=== PATIENT | male | born 1940 | race Caucasian/White ===

== ENCOUNTER 2018-03-29 08:09 | Day surgery (SDC) | payer MEDICARE, OTHER ==
[~2018-03-29] VITALS: Ht 185.4 cm; Wt 97.5 kg
[2018-03-29] MEDS ORDERED: SODIUM CHLORIDE 0.9% 500 ML IV PRN (08:31)
[2018-03-29 08:35] VITALS: BP 146/91
[2018-03-29] MEDS ORDERED: ALLO100T30 PO (08:55)
[2018-03-29] MEDS ORDERED: CARV6.252 PO (08:56)
[2018-03-29] MEDS ORDERED: CARB1TAB47 PO (08:56)
[2018-03-29 08:58] LABS: ANION GAP 7 mmol/L (5-15); CALCIUM 8.1 mg/dL (8.5-10.1); CHLORIDE 101 mmol/L (98-107); CREATININE 1.07 mg/dL (0.7-1.3)
[2018-03-29] MEDS ORDERED: COLC0.6T47 PO (08:58)
[2018-03-29] MEDS ORDERED: DIGO125T PO (08:59)
[2018-03-29] MEDS ORDERED: LANS30CA PO (08:59)
[2018-03-29] MEDS ORDERED: APIX5TAB PO (08:59)
[2018-03-29] MEDS ORDERED: ATOR10TA9 PO (09:00)
[2018-03-29] MEDS ORDERED: ROPI12TA2 PO (09:01)
[2018-03-29] MEDS ORDERED: LEVO200T PO (09:02)
[2018-03-29] MEDS ORDERED: SPIR25TA3 PO (09:02)
[2018-03-29] MEDS ORDERED: CHOL2000 PO (09:03)
[2018-03-29] MEDS ORDERED: PROPOFOL 10 MG/ML, 20ML ONE (09:43)
== END 2018-03-29 11:58 ==
LOC: CACL 08:09
PROVIDERS: ATTEND Internal Medicine Cardiovascular Disease
DX: I48.91 Unspecified atrial fibrillation (principal); E78.5 Hyperlipidemia, unspecified; Z79.82 Long term (current) use of aspirin; Z88.1 Allergy status to other antibiotic agents
CPT/HCPCS: 36415; 80048; 92960; 93005; J2704

== ENCOUNTER → 2018-12-05 | Outpatient (CLI) | payer MEDICARE, OTHER ==
[~2018-12-05] MED LIST: ALLO100T30 PO; APIX5TAB PO; ATOR10TA9 PO; CARB1TAB47 PO; CARV6.252 PO; CHOL2000 PO; COLC0.6T47 PO; DIGO125T PO; LANS30CA PO; LEVO200T PO; ROPI12TA2 PO; SPIR25TA5 PO
== END | disposition home or self-care (01) ==
LOC: CVU 09:36
PROVIDERS: ATTEND Internal Medicine Cardiovascular Disease
DX: I35.0 Nonrheumatic aortic (valve) stenosis (principal); I10 Essential (primary) hypertension; I48.91 Unspecified atrial fibrillation
CPT/HCPCS: 0399T; 93306

== ENCOUNTER → 2020-10-15 | Outpatient (CLI) | payer MEDICARE, OTHER ==
[~2020-10-15] MED LIST changes: -COLC0.6T47 PO; +COLC0.6T50 PO; -DIGO125T PO; +DIGO125T85 PO
== END | disposition home or self-care (01) ==
LOC: CVU 10:39
PROVIDERS: ATTEND Internal Medicine Cardiovascular Disease
DX: I08.3 Combined rheumatic disorders of mitral, aortic and tricuspid valves (principal); I11.9 Hypertensive heart disease without heart failure; I27.20 Pulmonary hypertension, unspecified
CPT/HCPCS: 93306

== ENCOUNTER 2021-06-04 02:25 | Emergency (ER) | payer MEDICARE, OTHER ==
[~2021-06-04] VITALS: Ht 188 cm; Wt 80.0 kg
[2021-06-04] MEDS ORDERED: SODIUM CHLORIDE 0.9% 1,000 ML IV ONE (02:30)
[2021-06-04] MEDS ORDERED: SODIUM CHLORIDE FLUSH 10ML SYR IVF ONE (02:30)
--- NOTE | 2021-06-04 02:49 | NUR ---
PT BIBA FROM HOME FOR CP, HX OF A FIB. PT PRESENTS DYSPHAGIC, NADN. ALL MONITORS ATTACHED, ERMD ADRIANA AT BEDSIDE.
--- NOTE | 2021-06-04 03:12 | NUR ---
report recieved from vito atkinson. pt on all monitors, ekg done. no other needs at this time
[2021-06-04 03:25] LABS: BASOPHILS % (AUTO) 1 % (0-1); EOSINOPHILS % (AUTO) 3 % (1-7); LYMPHOCYTES % (AUTO) 27 % (22-44); MEAN CORPUSCULAR HEMOGLOBIN 32.8 pg (27.5-34.5); MEAN CORPUSCULAR HGB CONC 33.4 g/dL (33.2-36.2); MEAN PLATELET VOLUME 8.5 fL (7.4-10.4); MONOCYTES % (AUTO) 8 % (2-9); NEUTROPHILS % (AUTO) 62 % (42-75); PLATELET COUNT 184 x10^3/uL (130-400); RED BLOOD COUNT 4.12 x10^6/uL (4.38-5.82); RED CELL DISTRIBUTION WIDTH 15.5 % (9.4-14.8)
[2021-06-04 03:30] LABS: ALBUMIN 2.9 g/dL (3.4-5.0); ANION GAP 4 mmol/L (5-15); CALCIUM 7.5 mg/dL (8.5-10.1); CHLORIDE 106 mmol/L (98-107)
[2021-06-04 03:33] LABS: INTERNATIONAL NORMALIZED RATIO 1.14 (0.93-1.1); PROTHROMBIN TIME 12.1 Seconds (9.6-11.5)
[2021-06-04 03:36] LABS: ALANINE AMINOTRANSFERASE 8 U/L (12-78); ALKALINE PHOSPHATASE 57 U/L (45-117); CREATININE 0.74 mg/dL (0.7-1.3); TOTAL PROTEIN 5.6 g/dL (6.4-8.2); TROPONIN I < 0.015 ng/mL (0.000-0.045)
--- NOTE | 2021-06-04 04:17 | NUR ---
spoke with pt's over the phone. she is on her way to the hospital. erp spoke with pt and pt is ok going home. erp states ok to not get urine
[2021-06-04 04:28] VITALS: BP 148/96
== END 2021-06-04 05:26 | disposition home or self-care (01) ==
LOC: ED 05:16
DX: I48.91 Unspecified atrial fibrillation (principal); R07.2 Precordial pain; G20 Parkinson's disease
CPT/HCPCS: 36415; 71045; 80053; 83605; 83880; 84145; 84484; 85025; 85610; 85730; 87040; 93005; 99285